=== PATIENT | female | born 1985 ===

== ENCOUNTER 2018-02-26 10:38 | Emergency (ER) | payer OTHER ==
[2018-02-26 11:33] VITALS: BMI 26.9
[2018-02-26 12:23] LABS: BASO % 0.4 % (0.0-2.0); EOS % 0.5 % (0.0-4.0); HEMOGLOBIN 10.9 g/dL (12.0-16.0); LYMPH # 0.8 K/uL (1.0-4.3); LYMPH % 10.3 % (20.0-40.0); MEAN CELL VOLUME 91.8 fl (81.0-99.0); MEAN CORPUSCULAR HEMOGLOBIN 31.1 pg (27.0-31.0); MEAN CORPUSCULAR HGB CONC 33.9 g/dL (33.0-37.0); MEAN PLATELET VOLUME 10.1 fl (7.2-11.7); MONO # 0.7 K/uL (0.0-0.8); MONO % 9.1 % (0.0-10.0); NEUT # 6.1 K/uL (1.8-7.0); NEUT % 79.7 % (50.0-75.0); NRBC % 0.1 % (0.0-0.0); RBC 3.49 Mil/uL (3.80-5.20); RED CELL DISTRIBUTION WIDTH 13.7 % (11.5-14.5); WHITE BLOOD COUNT 7.6 K/uL (4.8-10.8)
[2018-02-26 12:29] LABS: ALBUMIN 3.2 g/dL (3.5-5.0); ALT/SGPT 26 U/L (9-52); AST/SGOT 19 U/L (14-36); BLOOD UREA NITROGEN 8 mg/dl (7-17); CALCIUM 9.2 mg/dL (8.4-10.2); GFR NON-AFRICAN AMERICAN > 60
--- NOTE | 2018-02-26 14:31 | CARD ---
APPROVED REPORT Date of service: 02/26/2018 EKG Measurement Heart [id number] <Conclusion> Sinus rhythm with short TX Otherwise normal ECG
--- NOTE | 2018-02-26 17:48 | CP.PCM.CON ---
History of Present Illness - History of Present Illness History of Present Illness: 32 yr old primipara here due to a feeling of "shortness of breath" She has had a normal childhood and normal capacity to exert. No significant past illnesses or chr meds No significant family Hx No H/O asthma or LEWIS in the past. Nonsmoker denies ever having experience "racing" of her heart or syncope or near syncope. Physical exam shows a pleasat youg female, Comfortable at rest, propped up in bed, breathes at 16 BPM HR 76 BPM reg BP 124/70 mm Hg Pulse Ox 100% on RA No pedal oedema, extremities warm, nail beds were pink Chest clear, Heart sounds pure EKG: sinus rhythm with a P-R of 108 msec (Normal 120-200msec) Otherwise the cardiogram is normal This finding on the EKG is irrelevant to present clinical circumstances. Pt is stable to go home and does not need cardiac W/U or intervention Pt and reassured Spoke with Dr. Llamas. Meds Allergies/Adverse Reactions: Allergies Allergy/AdvReac Type Severity Reaction Status Date / Time No Known Allergies Allergy Verified 02/26/18 11:33 Results - Labs Result Diagrams: 02/26/18 12:05 02/26/18 12:05 Labs: Laboratory Results - last 24 hr 02/26/18 02/26/18 12:05 12:05 WBC 7.6 RBC 3.49 L Hgb 10.9 L Hct 32.0 L MCV 91.8 MCH 31.1 H MCHC 33.9 RDW 13.7 Plt Count 115 L MPV 10.1 Neut % (Auto) 79.7 H Lymph % (Auto) 10.3 L Snyder % (Auto) 9.1 Eos % (Auto) 0.5 Baso % (Auto) 0.4 Neut # (Auto) 6.1 Lymph # (Auto) 0.8 L Snyder # (Auto) 0.7 Eos # (Auto) 0.0 Baso # (Auto) 0.0 Sodium 138 Potassium 3.6 Chloride 111 H Carbon Dioxide 19 L Anion Gap 12 BUN 8 Creatinine 0.5 L Est GFR ( Amer) > 60 Est GFR (Non-Af Amer) > 60 Random Glucose 93 Calcium 9.2 Total Bilirubin 0.2 AST 19 ALT 26 Alkaline Phosphatase 95 Total Protein 6.4 Albumin 3.2 L Globulin 3.2 Albumin/Globulin Ratio 1.0
[2018-02-26 23:45] VITALS: BP 125/75; PULSE 93; RESP 20; TEMP 98.8; O2SAT 100
== END 2018-02-26 18:30 | disposition home or self-care (01) ==
LOC: H.EROB2 10:38
DX: O99.513 Diseases of the respiratory system complicating pregnancy, third trimester (principal); R06.02 Shortness of breath; J45.909 Unspecified asthma, uncomplicated; R00.2 Palpitations; Z3A.33 33 weeks gestation of pregnancy